=== PATIENT | male | born 1950 | race Caucasian/White ===

== ENCOUNTER 2018-05-15 07:28 | Inpatient (IN) | payer MEDICARE, MEDICAID ==
[~2018-05-15] VITALS: Ht 181.6 cm; Wt 88.5 kg
[2018-05-15 08:27] LABS: BASOPHILS % (AUTO) 0.3 % (0.0-2.0); EOSINOPHILS % (AUTO) 0.5 % (1.0-6.0); HEMATOCRIT 41.8 % (41-53); HEMOGLOBIN 14.4 g/dL (13.5-17.5); LYMPHOCYTES # (AUTO) 1.6 K/uL (1.0-4.8); LYMPHOCYTES % (AUTO) 26.7 % (22.0-44.0); MEAN CORPUSCULAR HGB CONC 34.5 G/dL (31.0-37.0); MEAN CORPUSCULAR VOLUME 102 fL (80-100); MONOCYTES # (AUTO) 0.7 K/uL (0.1-1.0); MONOCYTES % (AUTO) 11.6 % (2.0-9.0); NEUTROPHILS # (AUTO) 3.6 K/uL (1.8-7.7); NEUTROPHILS % (AUTO) 60.9 % (40.0-70.0); PLATELET COUNT (AUTO) 127 K/uL (150-450); RED BLOOD CELL COUNT(AUTO) 4.12 MIL/uL (4.50-5.90); RED CELL DISTRIBUTION WIDTH 12.6 % (11.5-14.5)
[2018-05-15 08:37] LABS: ANION GAP 15 mmol/L (8-16); CALCIUM, TOTAL 9.4 mg/dL (8.8-10.5); CARBON DIOXIDE 21 mmol/L (22-29); CHLORIDE 107 mmol/L (98-107); CREATININE 1.48 mg/dL (0.60-1.30); GLOMERULAR FILTR. RATE CALC 48 mL/min (>60); GLUCOSE,RANDOM 100 mg/dL (70-110); POTASSIUM 3.2 mmol/L (3.5-5.1); SODIUM SERUM 143 mmol/L (136-145); UREA NITROGEN, BLOOD 22 mg/dL (7-18)
[2018-05-15 08:45] LABS: ALANINE AMINOTRANSFERASE 47 U/L (12-78); ALBUMIN 3.4 g/dL (3.4-5.0); ALKALINE PHOSPHATASE 58 U/L (46-116); ASPARTATE AMINOTRANSFERASE 50 U/L (15-37); BILIRUBIN,TOTAL 1.1 mg/dL (0.1-1.0); TOTAL PROTEIN, SERUM 7.5 g/dL (6.4-8.2)
[2018-05-15] MEDS ORDERED: LORazepam 2 MG/ML VIAL IM ONE (14:00)
[2018-05-15] MEDS ORDERED: DiphenhydrAMINE HCL 50 MG/ML VIAL IM ONE (14:00)
[2018-05-15] MEDS ORDERED: HALOPERIDOL LACTATE 5 MG/ML VIAL IM ONE (14:00)
[2018-05-15] MEDS ORDERED: IBUPROFEN 400 MG TABLET PO PRN (14:30)
[2018-05-16] MEDS: HALOPERIDOL 5 MG TABLET PO PRN (06:09)
[2018-05-16] MEDS: LORazepam 2 MG TABLET PO PRN (06:10)
[2018-05-16 09:00] LABS: BASOPHILS % (AUTO) 0.6 % (0.0-2.0); EOSINOPHILS % (AUTO) 0.9 % (1.0-6.0); HEMATOCRIT 40.9 % (41-53); HEMOGLOBIN 14.1 g/dL (13.5-17.5); LYMPHOCYTES # (AUTO) 1.7 K/uL (1.0-4.8); LYMPHOCYTES % (AUTO) 37.9 % (22.0-44.0); MEAN CORPUSCULAR HEMOGLOBIN 34.6 pg (26.0-34.0); MEAN CORPUSCULAR HGB CONC 34.5 G/dL (31.0-37.0); MEAN CORPUSCULAR VOLUME 100 fL (80-100); MONOCYTES # (AUTO) 0.4 K/uL (0.1-1.0); MONOCYTES % (AUTO) 8.5 % (2.0-9.0); NEUTROPHILS # (AUTO) 2.3 K/uL (1.8-7.7); NEUTROPHILS % (AUTO) 52.1 % (40.0-70.0); PLATELET COUNT (AUTO) 116 K/uL (150-450); RED BLOOD CELL COUNT(AUTO) 4.08 MIL/uL (4.50-5.90)
[2018-05-16 09:28] LABS: CALCIUM, TOTAL 8.7 mg/dL (8.8-10.5); CREATININE 1.41 mg/dL (0.60-1.30); POTASSIUM 3.5 mmol/L (3.5-5.1); THYROID STIMULATING HORMONE 2.24 uIU/mL (0.36-3.74); TOTAL PROTEIN, SERUM 7.1 g/dL (6.4-8.2)
[2018-05-16 09:39] LABS: HEMOGLOBIN A1C 5.5 % (4.5-6.2)
[2018-05-16 14:17] LABS: CHOL/HDL RATIO 2.7 (4.2-7.3)
[2018-05-16 17:15] VITALS: BP 149/89
[2018-05-16 20:16] VITALS: BP 141/89
[2018-05-16] MEDS: ZOLPIDEM TARTRATE 10 MG TABLET PO PRN (20:53)
[2018-05-17 00:26] VITALS: BP 144/87
[2018-05-17] MEDS: LORazepam 2 MG TABLET PO PRN ×3 (03:07→17:48)
[2018-05-17 08:00] VITALS: BP 126/86
[2018-05-17] MEDS: HALOPERIDOL 5 MG TABLET PO PRN ×2 (12:55→17:48)
[2018-05-17 16:00] VITALS: BP 136/94
[2018-05-17] MEDS: QUEtiapine FUMARATE 200 MG TABLET PO SCH (16:54)
[2018-05-17] MEDS: GABAPENTIN 300 MG CAPSULE PO SCH (16:54)
[2018-05-17] MEDS ORDERED: HALOPERIDOL LACTATE 5 MG/ML VIAL IM PRN (18:45)
[2018-05-17 20:15] VITALS: BP 143/97
[2018-05-17] MEDS: BENZTROPINE MESYLATE 1 MG TABLET PO SCH (20:15)
[2018-05-17] MEDS: DIVALPROEX SODIUM 500 MG ER TABLET PO SCH (20:15)
[2018-05-17 20:30] VITALS: BP_SYST 138; BP_SYST 143; BP_DIAS 92; BP_DIAS 97
[2018-05-18] MEDS: HALOPERIDOL 5 MG TABLET PO PRN (09:21)
[2018-05-18] MEDS: QUEtiapine FUMARATE 200 MG TABLET PO SCH ×2 (09:21→16:54)
[2018-05-18] MEDS: GABAPENTIN 300 MG CAPSULE PO SCH ×3 (09:21→16:54)
[2018-05-18] MEDS: LORazepam 2 MG TABLET PO PRN (09:21)
[2018-05-18] MEDS: DIVALPROEX SODIUM 500 MG ER TABLET PO SCH ×2 (09:22→21:04)
[2018-05-18 10:57] VITALS: BP 154/98
[2018-05-18 17:02] VITALS: BP 169/104
[2018-05-18] MEDS: BENZTROPINE MESYLATE 1 MG TABLET PO SCH (21:04)
[2018-05-19 08:08] VITALS: BP 149/98
[2018-05-19] MEDS: DIVALPROEX SODIUM 500 MG ER TABLET PO SCH ×2 (08:14→21:35)
[2018-05-19] MEDS: QUEtiapine FUMARATE 200 MG TABLET PO SCH ×2 (08:15→17:40)
[2018-05-19] MEDS: GABAPENTIN 300 MG CAPSULE PO SCH ×3 (08:15→17:40)
[2018-05-19] MEDS: ACETAMINOPHEN 325 MG TABLET PO PRN (11:21)
[2018-05-19 11:24] VITALS: BP 155/110
[2018-05-19 12:24] VITALS: BP 146/88
[2018-05-19 17:36] VITALS: BP 151/94
[2018-05-19] MEDS: BENZTROPINE MESYLATE 1 MG TABLET PO SCH (21:36)
[2018-05-20 06:39] LABS: BASOPHILS % (AUTO) 0.4 % (0.0-2.0); EOSINOPHILS % (AUTO) 2.2 % (1.0-6.0); HEMATOCRIT 40.8 % (41-53); HEMOGLOBIN 14.1 g/dL (13.5-17.5); LYMPHOCYTES % (AUTO) 44.7 % (22.0-44.0); MEAN CORPUSCULAR HGB CONC 34.5 G/dL (31.0-37.0); MEAN CORPUSCULAR VOLUME 102 fL (80-100); MONOCYTES # (AUTO) 0.5 K/uL (0.1-1.0); MONOCYTES % (AUTO) 10.6 % (2.0-9.0); NEUTROPHILS # (AUTO) 1.9 K/uL (1.8-7.7); NEUTROPHILS % (AUTO) 42.1 % (40.0-70.0); PLATELET COUNT (AUTO) 117 K/uL (150-450); RED BLOOD CELL COUNT(AUTO) 4.02 MIL/uL (4.50-5.90); RED CELL DISTRIBUTION WIDTH 12.7 % (11.5-14.5)
[2018-05-20 06:56] LABS: CALCIUM, TOTAL 8.5 mg/dL (8.8-10.5); CREATININE 1.23 mg/dL (0.60-1.30)
[2018-05-20 09:21] VITALS: BP 161/82
[2018-05-20] MEDS: GABAPENTIN 300 MG CAPSULE PO SCH ×3 (09:25→16:30)
[2018-05-20] MEDS: QUEtiapine FUMARATE 200 MG TABLET PO SCH ×2 (09:25→16:30)
[2018-05-20] MEDS: DIVALPROEX SODIUM 500 MG ER TABLET PO SCH ×2 (09:25→20:18)
[2018-05-20] MEDS: AmLODIPine BESYLATE 5 MG TABLET PO SCH (16:30)
[2018-05-20 20:14] VITALS: BP 152/103
[2018-05-20] MEDS: BENZTROPINE MESYLATE 1 MG TABLET PO SCH (20:18)
[2018-05-21] MEDS: ZOLPIDEM TARTRATE 10 MG TABLET PO PRN (01:47)
[2018-05-21] MEDS: ACETAMINOPHEN 325 MG TABLET PO PRN (01:51)
[2018-05-21] MEDS: AmLODIPine BESYLATE 5 MG TABLET PO SCH (08:07)
[2018-05-21] MEDS: DIVALPROEX SODIUM 500 MG ER TABLET PO SCH ×2 (08:07→21:04)
[2018-05-21] MEDS: GABAPENTIN 300 MG CAPSULE PO SCH ×3 (08:07→16:22)
[2018-05-21] MEDS: QUEtiapine FUMARATE 200 MG TABLET PO SCH ×2 (08:08→16:21)
[2018-05-21 08:30] VITALS: BP 127/89
[2018-05-21 17:42] VITALS: BP 155/100
[2018-05-21] MEDS: BENZTROPINE MESYLATE 1 MG TABLET PO SCH (21:05)
[2018-05-22 04:33] VITALS: BP 159/95
[2018-05-22 08:08] VITALS: BP 162/92
[2018-05-22] MEDS: AmLODIPine BESYLATE 5 MG TABLET PO SCH (08:56)
[2018-05-22] MEDS: GABAPENTIN 300 MG CAPSULE PO SCH ×3 (08:56→16:16)
[2018-05-22] MEDS: DIVALPROEX SODIUM 500 MG ER TABLET PO SCH ×2 (08:56→20:03)
[2018-05-22] MEDS: QUEtiapine FUMARATE 200 MG TABLET PO SCH ×2 (08:56→16:16)
[2018-05-22 16:31] VITALS: BP 149/99
[2018-05-22] MEDS: BENZTROPINE MESYLATE 1 MG TABLET PO SCH (20:03)
[2018-05-23 05:09] VITALS: BP 134/101
[2018-05-23] MEDS: DIVALPROEX SODIUM 500 MG ER TABLET PO SCH ×2 (08:14→20:39)
[2018-05-23] MEDS: GABAPENTIN 300 MG CAPSULE PO SCH ×3 (08:14→16:33)
[2018-05-23] MEDS: QUEtiapine FUMARATE 200 MG TABLET PO SCH ×2 (08:14→16:33)
[2018-05-23] MEDS: AmLODIPine BESYLATE 5 MG TABLET PO SCH (08:14)
[2018-05-23 10:39] VITALS: BP 149/92
[2018-05-23 17:48] VITALS: BP 130/95
[2018-05-23] MEDS: BENZTROPINE MESYLATE 1 MG TABLET PO SCH (20:39)
[2018-05-24 04:02] VITALS: BP 144/92
[2018-05-24 10:07] VITALS: BP 144/96
[2018-05-24] MEDS: QUEtiapine FUMARATE 200 MG TABLET PO SCH ×2 (11:42→16:35)
[2018-05-24] MEDS: GABAPENTIN 300 MG CAPSULE PO SCH ×3 (11:43→16:35)
[2018-05-24] MEDS: DIVALPROEX SODIUM 500 MG ER TABLET PO SCH ×2 (11:43→20:11)
[2018-05-24] MEDS: AmLODIPine BESYLATE 5 MG TABLET PO SCH (11:47)
[2018-05-24 18:32] VITALS: BP 133/94
[2018-05-24] MEDS: BENZTROPINE MESYLATE 1 MG TABLET PO SCH (20:11)
[2018-05-25] MEDS: DIVALPROEX SODIUM 500 MG ER TABLET PO SCH (08:16)
[2018-05-25] MEDS: GABAPENTIN 300 MG CAPSULE PO SCH ×3 (08:16→16:30)
[2018-05-25] MEDS: QUEtiapine FUMARATE 200 MG TABLET PO SCH ×2 (08:16→16:30)
[2018-05-25] MEDS: AmLODIPine BESYLATE 5 MG TABLET PO SCH (08:17)
[2018-05-25 08:39] VITALS: BP 139/91
[2018-05-25] MEDS ORDERED: BENZ1TAB10 PO (15:42)
[2018-05-25] MEDS ORDERED: DIVA500T52 PO ×2 (15:43→15:44)
[2018-05-25] MEDS ORDERED: GABA300C PO (15:45)
[2018-05-25] MEDS ORDERED: QUET200T PO (15:45)
[2018-05-25] MEDS ORDERED: AMLO2.5T29 PO (15:48)
== END 2018-05-25 17:15 | DRG 885 ==
LOC: EMS 07:30 → 3EC 05-16 16:50 → EDBD 05-16 16:50 → 3EI 05-20 15:09
PROVIDERS: ADMIT Psychiatry & Neurology Psychiatry; ATTEND Psychiatry & Neurology Psychiatry
DX: F20.0 Paranoid schizophrenia (principal); F19.20 Other psychoactive substance dependence, uncomplicated; N17.9 Acute kidney failure, unspecified; F15.959 Other stimulant use, unspecified with stimulant-induced psychotic disorder, unspecified; R45.87 Impulsiveness; F41.9 Anxiety disorder, unspecified; F32.9 Major depressive disorder, single episode, unspecified; D72.819 Decreased white blood cell count, unspecified; E87.6 Hypokalemia; F99 Mental disorder, not otherwise specified; D69.6 Thrombocytopenia, unspecified; N18.9 Chronic kidney disease, unspecified; I12.9 Hypertensive chronic kidney disease with stage 1 through stage 4 chronic kidney disease, or unspecified chronic kidney disease; Z59.0 Homelessness; Z79.899 Other long term (current) drug therapy
CPT/HCPCS: 83036; 84443; 96372; 99285; G0480; J1200; J1630; J2060

== ENCOUNTER 2018-09-15 14:43 | Inpatient (IN) | payer MEDICARE, MEDICAID ==
[~2018-09-15] VITALS: Ht 180.3 cm; Wt 76.3 kg
[~2018-09-15 14:43] MED LIST: AMLO2.5T29 PO; BENZ1TAB10 PO; DIVA500T52 PO; GABA300C PO; QUET200T PO
[2018-09-15] MEDS ORDERED: CHLO100T24 PO (18:01)
[2018-09-15] MEDS ORDERED: DIPH25 PO (18:02)
[2018-09-15] MEDS ORDERED: HALOPERIDOL 5 MG TABLET PO PRN (19:45)
[2018-09-15] MEDS ORDERED: PNEUMOCOCCAL VACCINE POLYVALENT 0.5 ML VIAL [PPSV23] IM ONE (19:45)
[2018-09-15 20:10] VITALS: BP 163/92
[2018-09-15] MEDS ORDERED: MAGNESIUM HYDROXIDE SUSPENSION 30 ML UDCUP PO PRN (20:15)
[2018-09-15] MEDS ORDERED: MAG HYDROX/AL HYDROX/SIMETH ES 30 ML SUSPENSION UDCUP PO PRN (20:15)
[2018-09-15] MEDS ORDERED: NICOTINE 14 MG/24 HOUR PATCH TD PRN (20:15)
[2018-09-15] MEDS ORDERED: ALBUTEROL SULFATE HFA 90 MCG/PUFF 8 GM INHALER IH PRN (20:15)
[2018-09-15] MEDS ORDERED: DOCUSATE SODIUM 100 MG CAPSULE PO PRN (20:15)
[2018-09-15] MEDS ORDERED: PETROLATUM,WHITE 71 GM JELLY TP PRN (20:15)
[2018-09-15] MEDS ORDERED: ONDANSETRON HCL 4 MG TABLET PO PRN (20:15)
[2018-09-15] MEDS ORDERED: LOPERAMIDE HCL 2 MG CAPSULE PO PRN (20:15)
[2018-09-15] MEDS ORDERED: CloNIDine HCL 0.1 MG TABLET PO PRN (20:15)
[2018-09-15] MEDS ORDERED: GuaiFENesin/D-METHORPHAN [SUGAR-FREE] 200-20MG/10 ML SYRUP UDCUP PO PRN (20:15)
[2018-09-15] MEDS ORDERED: IBUPROFEN 400 MG TABLET PO PRN (20:15)
[2018-09-15] MEDS ORDERED: ACETAMINOPHEN 325 MG TABLET PO PRN (20:15)
[2018-09-15] MEDS ORDERED: CloNIDine HCL 0.1 MG TABLET ONE (20:25)
[2018-09-15] MEDS ORDERED: AmLODIPine BESYLATE 5 MG TABLET ONE (20:25)
[2018-09-15] MEDS ORDERED: PIPERONYL BUTOXIDE/PYRETHRINS 120 ML SHAMPOO TP ONE (20:30)
[2018-09-15] MEDS: AmLODIPine BESYLATE 5 MG TABLET PO SCH (20:32)
[2018-09-15 21:00] VITALS: BP 139/69
[2018-09-16 04:33] VITALS: BP 157/82
[2018-09-16] MEDS: LORazepam 2 MG TABLET PO PRN ×2 (08:09→12:25)
[2018-09-16] MEDS: AmLODIPine BESYLATE 5 MG TABLET PO SCH (08:09)
[2018-09-16 08:37] VITALS: BP 136/79
[2018-09-16 08:38] LABS: BASOPHILS % (AUTO) 0.1 % (0.0-2.0); EOSINOPHILS % (AUTO) 0.6 % (1.0-6.0); HEMATOCRIT 33.7 % (41-53); HEMOGLOBIN 11.7 g/dL (13.5-17.5); LYMPHOCYTES # (AUTO) 1.4 K/uL (1.0-4.8); LYMPHOCYTES % (AUTO) 23.2 % (22.0-44.0); MEAN CORPUSCULAR HEMOGLOBIN 34.4 pg (26.0-34.0); MEAN CORPUSCULAR HGB CONC 34.7 G/dL (31.0-37.0); MEAN CORPUSCULAR VOLUME 99 fL (80-100); MONOCYTES # (AUTO) 0.5 K/uL (0.1-1.0); MONOCYTES % (AUTO) 8.8 % (2.0-9.0); NEUTROPHILS # (AUTO) 3.9 K/uL (1.8-7.7); NEUTROPHILS % (AUTO) 67.3 % (40.0-70.0); PLATELET COUNT (AUTO) 162 K/uL (150-450); RED CELL DISTRIBUTION WIDTH 13.1 % (11.5-14.5)
[2018-09-16 08:51] LABS: HEMOGLOBIN A1C 5.7 % (4.5-6.2)
[2018-09-16 09:04] LABS: ALBUMIN 2.9 g/dL (3.4-5.0); BILIRUBIN,TOTAL 0.6 mg/dL (0.1-1.0); CALCIUM, TOTAL 8.2 mg/dL (8.8-10.5); CHOL/HDL RATIO 2.1 (4.2-7.3); CREATININE 1.42 mg/dL (0.60-1.30); FREE T4 (FREE THYROXINE) 1.01 ng/dL (0.76-1.46); THYROID STIMULATING HORMONE 4.62 uIU/mL (0.36-3.74); TOTAL PROTEIN, SERUM 7.6 g/dL (6.4-8.2)
[2018-09-16] MEDS: GABAPENTIN 300 MG CAPSULE PO SCH (16:53)
[2018-09-16] MEDS: DIVALPROEX SODIUM 500 MG DR TABLET PO SCH ×2 (16:53→20:24)
[2018-09-16] MEDS: QUEtiapine FUMARATE 200 MG TABLET PO SCH (16:54)
[2018-09-16] MEDS: BENZTROPINE MESYLATE 1 MG TABLET PO SCH (20:24)
[2018-09-17 00:05] VITALS: BP 133/83
[2018-09-17] MEDS: ZOLPIDEM TARTRATE 10 MG TABLET PO PRN ×2 (00:15→21:04)
[2018-09-17] MEDS: LORazepam 2 MG TABLET PO PRN ×3 (00:15→21:04)
[2018-09-17 08:01] VITALS: BP 138/93
[2018-09-17] MEDS: GABAPENTIN 300 MG CAPSULE PO SCH ×3 (08:11→18:01)
[2018-09-17] MEDS: QUEtiapine FUMARATE 200 MG TABLET PO SCH ×2 (08:11→18:01)
[2018-09-17] MEDS: DIVALPROEX SODIUM 500 MG DR TABLET PO SCH ×2 (08:11→20:04)
[2018-09-17] MEDS: AmLODIPine BESYLATE 5 MG TABLET PO SCH (08:13)
[2018-09-17 16:40] VITALS: BP 155/78
[2018-09-17] MEDS: COLLOIDAL OATMEAL PACKET TP SCH (18:01)
[2018-09-17] MEDS: BENZTROPINE MESYLATE 1 MG TABLET PO SCH (20:04)
[2018-09-18 06:41] VITALS: BP 144/79
[2018-09-18] MEDS: QUEtiapine FUMARATE 200 MG TABLET PO SCH ×2 (08:00→16:29)
[2018-09-18] MEDS: GABAPENTIN 300 MG CAPSULE PO SCH ×3 (08:00→16:29)
[2018-09-18 08:01] VITALS: BP 156/80
[2018-09-18] MEDS: AmLODIPine BESYLATE 5 MG TABLET PO SCH (08:01)
[2018-09-18] MEDS: COLLOIDAL OATMEAL PACKET TP SCH ×2 (08:03→16:29)
[2018-09-18] MEDS: DIVALPROEX SODIUM 500 MG DR TABLET PO SCH ×2 (09:19→20:57)
[2018-09-18 16:15] VITALS: BP 101/67
[2018-09-18] MEDS: LORazepam 2 MG TABLET PO PRN (16:29)
[2018-09-18] MEDS: BENZTROPINE MESYLATE 1 MG TABLET PO SCH (20:58)
[2018-09-18] MEDS: ZOLPIDEM TARTRATE 10 MG TABLET PO PRN (20:58)
[2018-09-19 04:11] VITALS: BP 132/75
[2018-09-19] MEDS: QUEtiapine FUMARATE 200 MG TABLET PO SCH ×2 (08:13→16:41)
[2018-09-19] MEDS: AmLODIPine BESYLATE 5 MG TABLET PO SCH (08:13)
[2018-09-19] MEDS: DIVALPROEX SODIUM 500 MG DR TABLET PO SCH ×2 (08:13→21:00)
[2018-09-19] MEDS: GABAPENTIN 300 MG CAPSULE PO SCH ×3 (08:14→16:41)
[2018-09-19] MEDS: COLLOIDAL OATMEAL PACKET TP SCH ×2 (08:14→17:00)
[2018-09-19 08:31] VITALS: BP 139/90
[2018-09-19 16:00] VITALS: BP 138/85
[2018-09-19] MEDS: MUPIROCIN CALCIUM 2% 22 GM OINTMENT NASAL SCH (16:41)
[2018-09-19] MEDS: LORazepam 2 MG TABLET PO PRN (16:41)
[2018-09-19] MEDS: BENZTROPINE MESYLATE 1 MG TABLET PO SCH (21:00)
[2018-09-20] MEDS: LORazepam 2 MG TABLET PO PRN (02:17)
[2018-09-20] MEDS: ZOLPIDEM TARTRATE 10 MG TABLET PO PRN (02:17)
[2018-09-20 02:19] VITALS: BP 132/85
[2018-09-20 08:00] VITALS: BP 140/84
[2018-09-20] MEDS: GABAPENTIN 300 MG CAPSULE PO SCH ×3 (08:03→17:00)
[2018-09-20] MEDS: DIVALPROEX SODIUM 500 MG DR TABLET PO SCH (08:03)
[2018-09-20] MEDS: QUEtiapine FUMARATE 200 MG TABLET PO SCH ×2 (08:04→17:00)
[2018-09-20] MEDS: AmLODIPine BESYLATE 5 MG TABLET PO SCH (08:04)
[2018-09-20] MEDS: MUPIROCIN CALCIUM 2% 22 GM OINTMENT NASAL SCH ×2 (08:05→17:00)
[2018-09-20] MEDS: COLLOIDAL OATMEAL PACKET TP SCH ×3 (08:06→17:00)
[2018-09-20 13:30] VITALS: BP 157/84
[2018-09-24] MEDS ORDERED: AMLO-512 PO (10:08)
[2018-09-24] MEDS ORDERED: HYDR25TA84 PO (10:08)
[2018-09-24] MEDS ORDERED: METO5TAB95 PO (10:09)
== END 2018-09-20 18:30 | disposition home or self-care (01) | DRG 885 ==
LOC: B3A 20:07
PROVIDERS: ADMIT Psychiatry & Neurology Child & Adolescent Psychiatry; ATTEND Psychiatry & Neurology Child & Adolescent Psychiatry
DX: F23 Brief psychotic disorder (principal); D64.9 Anemia, unspecified; E03.9 Hypothyroidism, unspecified; F10.10 Alcohol abuse, uncomplicated; I12.9 Hypertensive chronic kidney disease with stage 1 through stage 4 chronic kidney disease, or unspecified chronic kidney disease; N18.9 Chronic kidney disease, unspecified; Z71.41 Alcohol abuse counseling and surveillance of alcoholic; Z79.899 Other long term (current) drug therapy; Z28.21 Immunization not carried out because of patient refusal
CPT/HCPCS: 80074; 83036; 84439; 84443; 87081; 90686; Q0162

== ENCOUNTER 2018-09-24 10:34 | Inpatient (IN) | payer MEDICARE, MEDICAID ==
[~2018-09-24] VITALS: Ht 180.3 cm; Wt 81.0 kg
[~2018-09-24 10:34] MED LIST changes: +AMLO-512 PO; +HYDR25TA84 PO; +METO5TAB95 PO
[2018-09-24 12:39] VITALS: BP 128/68
[2018-09-24] MEDS ORDERED: NICOTINE 14 MG/24 HOUR PATCH TD PRN (14:00)
[2018-09-24] MEDS ORDERED: PETROLATUM,WHITE 71 GM JELLY TP PRN (14:00)
[2018-09-24] MEDS ORDERED: GuaiFENesin/D-METHORPHAN [SUGAR-FREE] 200-20MG/10 ML SYRUP UDCUP PO PRN (14:00)
[2018-09-24] MEDS ORDERED: DOCUSATE SODIUM 100 MG CAPSULE PO PRN (14:00)
[2018-09-24] MEDS ORDERED: LOPERAMIDE HCL 2 MG CAPSULE PO PRN (14:00)
[2018-09-24] MEDS ORDERED: ONDANSETRON HCL 4 MG TABLET PO PRN (14:00)
[2018-09-24] MEDS ORDERED: ACETAMINOPHEN 325 MG TABLET PO PRN (14:00)
[2018-09-24] MEDS ORDERED: MAG HYDROX/AL HYDROX/SIMETH ES 30 ML SUSPENSION UDCUP PO PRN (14:00)
[2018-09-24] MEDS ORDERED: ALBUTEROL SULFATE HFA 90 MCG/PUFF 8 GM INHALER IH PRN (14:00)
[2018-09-24] MEDS ORDERED: CloNIDine HCL 0.1 MG TABLET PO PRN (14:00)
[2018-09-24] MEDS ORDERED: MAGNESIUM HYDROXIDE SUSPENSION 30 ML UDCUP PO PRN (14:00)
[2018-09-24] MEDS ORDERED: PERMETHRIN 1% 60 ML LOTION TP ONE (14:00)
[2018-09-24 14:34] LABS: GLUCOMETER DEV NAME(LOC) BV3N.; GLUCOSE,POINT OF CARE 115 MG/DL (70-110)
[2018-09-24] MEDS: QUEtiapine FUMARATE 200 MG TABLET PO SCH (16:40)
[2018-09-24] MEDS: TERBINAFINE HCL 1% 30 GM CREAM TP SCH (16:40)
[2018-09-24] MEDS: GABAPENTIN 300 MG CAPSULE PO SCH (16:40)
[2018-09-24 17:02] VITALS: BP 152/87
[2018-09-24] MEDS ORDERED: DiphenhydrAMINE HCL 50 MG/ML VIAL IM ONE (17:30)
[2018-09-24] MEDS ORDERED: LORazepam 2 MG/ML VIAL IM ONE (17:30)
[2018-09-24] MEDS ORDERED: HALOPERIDOL LACTATE 5 MG/ML VIAL IM ONE (17:30)
[2018-09-24] MEDS: DIVALPROEX SODIUM 500 MG DR TABLET PO SCH (20:16)
[2018-09-24] MEDS: LORazepam 2 MG TABLET PO PRN (20:16)
[2018-09-25 05:10] VITALS: BP 133/91
[2018-09-25 07:28] LABS: BASOPHILS % (AUTO) 0.8 % (0.0-2.0); EOSINOPHILS % (AUTO) 1.3 % (1.0-6.0); HEMATOCRIT 40.1 % (41-53); HEMOGLOBIN 13.9 g/dL (13.5-17.5); LYMPHOCYTES # (AUTO) 2.2 K/uL (1.0-4.8); MEAN CORPUSCULAR HEMOGLOBIN 34.5 pg (26.0-34.0); MEAN CORPUSCULAR HGB CONC 34.5 G/dL (31.0-37.0); MEAN CORPUSCULAR VOLUME 100 fL (80-100); MONOCYTES # (AUTO) 0.7 K/uL (0.1-1.0); MONOCYTES % (AUTO) 12.3 % (2.0-9.0); NEUTROPHILS # (AUTO) 2.4 K/uL (1.8-7.7); NEUTROPHILS % (AUTO) 44.6 % (40.0-70.0); PLATELET COUNT (AUTO) 148 K/uL (150-450); RED BLOOD CELL COUNT(AUTO) 4.02 MIL/uL (4.50-5.90); RED CELL DISTRIBUTION WIDTH 12.7 % (11.5-14.5)
[2018-09-25] MEDS ORDERED: PNEUMOCOCCAL VACCINE POLYVALENT 0.5 ML VIAL [PPSV23] IM ONE (07:30)
[2018-09-25 07:46] LABS: HEMOGLOBIN A1C 5.7 % (4.5-6.2)
[2018-09-25 08:04] LABS: ALBUMIN 2.7 g/dL (3.4-5.0); BILIRUBIN,TOTAL 0.3 mg/dL (0.1-1.0); CALCIUM, TOTAL 8.6 mg/dL (8.8-10.5); CHOL/HDL RATIO 2.9 (4.2-7.3); CREATININE 1.34 mg/dL (0.60-1.30); POTASSIUM 4.5 mmol/L (3.5-5.1); THYROID STIMULATING HORMONE 3.65 uIU/mL (0.36-3.74); TOTAL PROTEIN, SERUM 7.5 g/dL (6.4-8.2)
[2018-09-25] MEDS: QUEtiapine FUMARATE 200 MG TABLET PO SCH ×2 (08:50→16:23)
[2018-09-25] MEDS: AmLODIPine BESYLATE 10 MG TABLET PO SCH (08:50)
[2018-09-25] MEDS: HydrALAZINE HCL 25 MG TABLET PO SCH (08:50)
[2018-09-25] MEDS: TERBINAFINE HCL 1% 30 GM CREAM TP SCH ×2 (08:51→16:23)
[2018-09-25] MEDS: GABAPENTIN 300 MG CAPSULE PO SCH ×3 (08:51→16:22)
[2018-09-25] MEDS: DIVALPROEX SODIUM 500 MG DR TABLET PO SCH ×2 (08:51→20:30)
[2018-09-25 09:04] VITALS: BP 105/66
[2018-09-25 16:26] VITALS: BP 136/86
[2018-09-25] MEDS ORDERED: LACTULOSE 20 GM/30 ML SOLUTION UDCUP PO PRN (18:45)
[2018-09-26 04:52] VITALS: BP 128/78
[2018-09-26 08:09] VITALS: BP 131/93
[2018-09-26 08:39] LABS: CALCIUM, TOTAL 8.2 mg/dL (8.8-10.5); CREATININE 1.25 mg/dL (0.60-1.30); POTASSIUM 4.2 mmol/L (3.5-5.1)
[2018-09-26] MEDS: DIVALPROEX SODIUM 500 MG DR TABLET PO SCH ×2 (09:21→20:19)
[2018-09-26] MEDS: GABAPENTIN 300 MG CAPSULE PO SCH ×3 (09:22→16:50)
[2018-09-26] MEDS: AmLODIPine BESYLATE 10 MG TABLET PO SCH (09:22)
[2018-09-26] MEDS: HydrALAZINE HCL 25 MG TABLET PO SCH (09:22)
[2018-09-26] MEDS: QUEtiapine FUMARATE 200 MG TABLET PO SCH ×2 (09:22→16:50)
[2018-09-26] MEDS: TERBINAFINE HCL 1% 30 GM CREAM TP SCH ×2 (09:22→16:50)
[2018-09-26] MEDS: HALOPERIDOL 5 MG TABLET PO PRN ×3 (10:11→20:19)
[2018-09-26 16:31] VITALS: BP 112/66
[2018-09-26] MEDS: IBUPROFEN 400 MG TABLET PO PRN (18:17)
[2018-09-27 02:43] VITALS: BP 124/77
[2018-09-27] MEDS: AmLODIPine BESYLATE 10 MG TABLET PO SCH (08:02)
[2018-09-27] MEDS: QUEtiapine FUMARATE 200 MG TABLET PO SCH ×2 (08:02→16:33)
[2018-09-27] MEDS: DIVALPROEX SODIUM 500 MG DR TABLET PO SCH ×2 (08:02→20:19)
[2018-09-27] MEDS: GABAPENTIN 300 MG CAPSULE PO SCH ×3 (08:02→16:33)
[2018-09-27] MEDS: HydrALAZINE HCL 25 MG TABLET PO SCH (08:02)
[2018-09-27] MEDS: TERBINAFINE HCL 1% 30 GM CREAM TP SCH ×2 (08:03→16:33)
[2018-09-27 08:08] VITALS: BP 140/89
[2018-09-27] MEDS: HALOPERIDOL 5 MG TABLET PO PRN (16:33)
[2018-09-27 16:53] VITALS: BP 112/60
[2018-09-28 00:14] VITALS: BP 138/79
[2018-09-28 00:52] VITALS: BP 135/86
[2018-09-28] MEDS: QUEtiapine FUMARATE 200 MG TABLET PO SCH ×2 (08:01→16:26)
[2018-09-28] MEDS: HydrALAZINE HCL 25 MG TABLET PO SCH (08:01)
[2018-09-28] MEDS: DIVALPROEX SODIUM 500 MG DR TABLET PO SCH ×2 (08:02→20:28)
[2018-09-28] MEDS: GABAPENTIN 300 MG CAPSULE PO SCH ×3 (08:02→16:26)
[2018-09-28 08:05] VITALS: BP 153/90
[2018-09-28] MEDS: AmLODIPine BESYLATE 10 MG TABLET PO SCH (08:06)
[2018-09-28] MEDS: TERBINAFINE HCL 1% 30 GM CREAM TP SCH ×2 (08:09→16:26)
[2018-09-28] MEDS ORDERED: PERMETHRIN 1% 60 ML LOTION TP ONE (10:15)
[2018-09-28 16:11] VITALS: BP 124/85
[2018-09-29 02:39] VITALS: BP 137/90
[2018-09-29 08:16] VITALS: BP 140/78
[2018-09-29] MEDS: AmLODIPine BESYLATE 10 MG TABLET PO SCH (09:16)
[2018-09-29] MEDS: GABAPENTIN 300 MG CAPSULE PO SCH ×3 (09:16→16:49)
[2018-09-29] MEDS: DIVALPROEX SODIUM 500 MG DR TABLET PO SCH ×2 (09:16→20:42)
[2018-09-29] MEDS: TERBINAFINE HCL 1% 30 GM CREAM TP SCH ×2 (09:16→16:50)
[2018-09-29] MEDS: QUEtiapine FUMARATE 200 MG TABLET PO SCH ×2 (09:16→16:50)
[2018-09-29] MEDS: HydrALAZINE HCL 25 MG TABLET PO SCH (09:19)
[2018-09-29 16:03] VITALS: BP 125/72
[2018-09-30 02:11] VITALS: BP 128/78
[2018-09-30 08:04] VITALS: BP 142/84
[2018-09-30] MEDS: QUEtiapine FUMARATE 200 MG TABLET PO SCH ×2 (09:02→16:08)
[2018-09-30] MEDS: AmLODIPine BESYLATE 10 MG TABLET PO SCH (09:02)
[2018-09-30] MEDS: HydrALAZINE HCL 25 MG TABLET PO SCH (09:02)
[2018-09-30] MEDS: TERBINAFINE HCL 1% 30 GM CREAM TP SCH ×2 (09:02→16:09)
[2018-09-30] MEDS: DIVALPROEX SODIUM 500 MG DR TABLET PO SCH ×2 (09:02→20:12)
[2018-09-30] MEDS: GABAPENTIN 300 MG CAPSULE PO SCH ×3 (09:02→16:09)
[2018-09-30 16:41] VITALS: BP 155/90
[2018-10-01 01:17] VITALS: BP 145/88
[2018-10-01 08:04] VITALS: BP 131/77
[2018-10-01] MEDS: GABAPENTIN 300 MG CAPSULE PO SCH ×3 (08:08→16:43)
[2018-10-01] MEDS: QUEtiapine FUMARATE 200 MG TABLET PO SCH ×2 (08:09→16:43)
[2018-10-01] MEDS: HydrALAZINE HCL 25 MG TABLET PO SCH (08:09)
[2018-10-01] MEDS: DIVALPROEX SODIUM 500 MG DR TABLET PO SCH ×2 (08:09→21:00)
[2018-10-01] MEDS: AmLODIPine BESYLATE 10 MG TABLET PO SCH (08:09)
[2018-10-01] MEDS: TERBINAFINE HCL 1% 30 GM CREAM TP SCH ×2 (08:10→16:42)
[2018-10-01] MEDS: LORazepam 2 MG TABLET PO PRN (08:12)
[2018-10-01] MEDS: HALOPERIDOL 5 MG TABLET PO PRN (08:12)
[2018-10-01 16:00] VITALS: BP 136/80
[2018-10-01] MEDS: DICLOFENAC SODIUM 1% 100 GM GEL [4GM] TP SCH (16:42)
[2018-10-01] MEDS: IBUPROFEN 400 MG TABLET PO PRN (19:08)
[2018-10-01] MEDS: CEPHALEXIN MONOHYDRATE 500 MG CAPSULE PO SCH (21:00)
[2018-10-02] VITALS (10 sets, daily range): BP systolic 102–147; BP diastolic 64–93
[2018-10-02] MEDS: IBUPROFEN 400 MG TABLET PO PRN (03:08)
[2018-10-02] MEDS: CEPHALEXIN MONOHYDRATE 500 MG CAPSULE PO SCH ×4 (08:09→20:20)
[2018-10-02] MEDS: GABAPENTIN 300 MG CAPSULE PO SCH ×3 (08:09→16:03)
[2018-10-02] MEDS: TERBINAFINE HCL 1% 30 GM CREAM TP SCH ×2 (08:09→16:06)
[2018-10-02] MEDS: AmLODIPine BESYLATE 10 MG TABLET PO SCH (08:09)
[2018-10-02] MEDS: QUEtiapine FUMARATE 200 MG TABLET PO SCH ×2 (08:09→16:03)
[2018-10-02] MEDS: SULFAMETHOX/TRIMETH DS 800-160 MG/TABLET PO SCH ×2 (08:09→16:03)
[2018-10-02] MEDS: DIVALPROEX SODIUM 500 MG DR TABLET PO SCH ×2 (08:09→20:20)
[2018-10-02] MEDS: DICLOFENAC SODIUM 1% 100 GM GEL [4GM] TP SCH ×3 (08:09→16:06)
[2018-10-02] MEDS: HydrALAZINE HCL 25 MG TABLET PO SCH (08:09)
[2018-10-02] MEDS: LORazepam 2 MG TABLET PO PRN ×2 (08:10→16:04)
[2018-10-02 08:55] LABS: BASOPHILS % (AUTO) 0.6 % (0.0-2.0); EOSINOPHILS % (AUTO) 1.4 % (1.0-6.0); HEMATOCRIT 33.3 % (41-53); HEMOGLOBIN 11.1 g/dL (13.5-17.5); LYMPHOCYTES # (AUTO) 1.5 K/uL (1.0-4.8); LYMPHOCYTES % (AUTO) 32.1 % (22.0-44.0); MEAN CORPUSCULAR HGB CONC 33.5 G/dL (31.0-37.0); MEAN CORPUSCULAR VOLUME 99 fL (80-100); MONOCYTES # (AUTO) 0.6 K/uL (0.1-1.0); MONOCYTES % (AUTO) 12.7 % (2.0-9.0); NEUTROPHILS # (AUTO) 2.5 K/uL (1.8-7.7); NEUTROPHILS % (AUTO) 53.2 % (40.0-70.0); PLATELET COUNT (AUTO) 114 K/uL (150-450); RED BLOOD CELL COUNT(AUTO) 3.38 MIL/uL (4.50-5.90); RED CELL DISTRIBUTION WIDTH 13.1 % (11.5-14.5)
[2018-10-02] MEDS ORDERED: PERMETHRIN 5% 60 GM CREAM TP ONE (21:45)
[2018-10-03] MEDS: HALOPERIDOL 5 MG TABLET PO PRN (00:41)
[2018-10-03] MEDS: ZOLPIDEM TARTRATE 10 MG TABLET PO PRN (00:41)
[2018-10-03] MEDS: SULFAMETHOX/TRIMETH DS 800-160 MG/TABLET PO SCH ×2 (08:23→16:10)
[2018-10-03] MEDS: GABAPENTIN 300 MG CAPSULE PO SCH ×3 (08:23→16:10)
[2018-10-03] MEDS: CEPHALEXIN MONOHYDRATE 500 MG CAPSULE PO SCH ×4 (08:23→20:28)
[2018-10-03] MEDS: DIVALPROEX SODIUM 500 MG DR TABLET PO SCH ×2 (08:23→20:28)
[2018-10-03] MEDS: AmLODIPine BESYLATE 10 MG TABLET PO SCH (08:24)
[2018-10-03] MEDS: QUEtiapine FUMARATE 200 MG TABLET PO SCH ×2 (08:24→16:10)
[2018-10-03] MEDS: TERBINAFINE HCL 1% 30 GM CREAM TP SCH ×2 (09:00→16:11)
[2018-10-03] MEDS: DICLOFENAC SODIUM 1% 100 GM GEL [4GM] TP SCH ×3 (09:00→16:10)
[2018-10-03 09:12] VITALS: BP 152/89
[2018-10-03] MEDS: HydrALAZINE HCL 25 MG TABLET PO SCH (12:46)
[2018-10-03 17:01] VITALS: BP 121/76
[2018-10-04] MEDS: ZOLPIDEM TARTRATE 10 MG TABLET PO PRN (00:54)
[2018-10-04] MEDS: LORazepam 2 MG TABLET PO PRN ×2 (00:54→07:56)
[2018-10-04] MEDS: HydrALAZINE HCL 25 MG TABLET PO SCH (07:54)
[2018-10-04] MEDS: HALOPERIDOL 5 MG TABLET PO PRN (07:57)
[2018-10-04] MEDS: AmLODIPine BESYLATE 10 MG TABLET PO SCH (07:57)
[2018-10-04] MEDS: QUEtiapine FUMARATE 200 MG TABLET PO SCH ×2 (07:57→17:16)
[2018-10-04] MEDS: DIVALPROEX SODIUM 500 MG DR TABLET PO SCH ×2 (07:57→20:01)
[2018-10-04] MEDS: GABAPENTIN 300 MG CAPSULE PO SCH ×3 (07:57→17:15)
[2018-10-04] MEDS: TERBINAFINE HCL 1% 30 GM CREAM TP SCH ×2 (07:58→17:17)
[2018-10-04] MEDS: SULFAMETHOX/TRIMETH DS 800-160 MG/TABLET PO SCH ×2 (07:58→17:15)
[2018-10-04] MEDS: CEPHALEXIN MONOHYDRATE 500 MG CAPSULE PO SCH ×4 (07:58→20:01)
[2018-10-04] MEDS: DICLOFENAC SODIUM 1% 100 GM GEL [4GM] TP SCH ×3 (07:58→17:17)
[2018-10-04 08:00] VITALS: BP 147/95
[2018-10-04 09:30] VITALS: BP 120/63
[2018-10-04 10:02] VITALS: BP 120/63
[2018-10-04 16:38] VITALS: BP 127/83
[2018-10-05 08:00] VITALS: BP 153/95
[2018-10-05] MEDS: GABAPENTIN 300 MG CAPSULE PO SCH ×3 (08:09→16:55)
[2018-10-05] MEDS: SULFAMETHOX/TRIMETH DS 800-160 MG/TABLET PO SCH ×2 (08:09→16:55)
[2018-10-05] MEDS: AmLODIPine BESYLATE 10 MG TABLET PO SCH (08:09)
[2018-10-05] MEDS: QUEtiapine FUMARATE 200 MG TABLET PO SCH ×2 (08:09→16:56)
[2018-10-05] MEDS: CEPHALEXIN MONOHYDRATE 500 MG CAPSULE PO SCH ×4 (08:09→20:18)
[2018-10-05] MEDS: DIVALPROEX SODIUM 500 MG DR TABLET PO SCH ×2 (08:09→20:17)
[2018-10-05] MEDS: TERBINAFINE HCL 1% 30 GM CREAM TP SCH ×2 (08:10→17:00)
[2018-10-05] MEDS: DICLOFENAC SODIUM 1% 100 GM GEL [4GM] TP SCH ×3 (08:10→17:00)
[2018-10-05] MEDS: HydrALAZINE HCL 25 MG TABLET PO SCH (08:10)
[2018-10-05] MEDS: LORazepam 2 MG TABLET PO PRN (17:00)
[2018-10-05 19:00] VITALS: BP 143/85
[2018-10-06] MEDS: HydrALAZINE HCL 25 MG TABLET PO SCH (07:58)
[2018-10-06] MEDS: DIVALPROEX SODIUM 500 MG DR TABLET PO SCH ×2 (08:00→22:00)
[2018-10-06] MEDS: QUEtiapine FUMARATE 200 MG TABLET PO SCH ×2 (08:00→17:31)
[2018-10-06] MEDS: AmLODIPine BESYLATE 10 MG TABLET PO SCH (08:00)
[2018-10-06] MEDS: LORazepam 2 MG TABLET PO PRN (08:00)
[2018-10-06] MEDS: SULFAMETHOX/TRIMETH DS 800-160 MG/TABLET PO SCH ×2 (08:01→17:30)
[2018-10-06] MEDS: DICLOFENAC SODIUM 1% 100 GM GEL [4GM] TP SCH ×3 (08:01→17:32)
[2018-10-06] MEDS: TERBINAFINE HCL 1% 30 GM CREAM TP SCH ×2 (08:01→17:38)
[2018-10-06] MEDS: CEPHALEXIN MONOHYDRATE 500 MG CAPSULE PO SCH ×4 (08:01→22:00)
[2018-10-06] MEDS: GABAPENTIN 300 MG CAPSULE PO SCH ×3 (08:01→17:30)
[2018-10-06 08:29] VITALS: BP 156/83
[2018-10-06 16:36] VITALS: BP 146/82
[2018-10-07] MEDS: LORazepam 2 MG TABLET PO PRN ×2 (00:03→23:25)
[2018-10-07] MEDS: ZOLPIDEM TARTRATE 10 MG TABLET PO PRN ×2 (00:03→20:15)
[2018-10-07] MEDS: HALOPERIDOL 5 MG TABLET PO PRN ×2 (01:24→08:01)
[2018-10-07] MEDS: DIVALPROEX SODIUM 500 MG DR TABLET PO SCH ×2 (08:01→20:03)
[2018-10-07] MEDS: GABAPENTIN 300 MG CAPSULE PO SCH ×3 (08:01→16:29)
[2018-10-07] MEDS: CEPHALEXIN MONOHYDRATE 500 MG CAPSULE PO SCH ×4 (08:01→20:03)
[2018-10-07] MEDS: QUEtiapine FUMARATE 200 MG TABLET PO SCH ×2 (08:01→16:29)
[2018-10-07] MEDS: SULFAMETHOX/TRIMETH DS 800-160 MG/TABLET PO SCH ×2 (08:01→16:28)
[2018-10-07] MEDS: AmLODIPine BESYLATE 10 MG TABLET PO SCH (08:01)
[2018-10-07] MEDS: HydrALAZINE HCL 25 MG TABLET PO SCH ×2 (08:02→20:20)
[2018-10-07] MEDS: TERBINAFINE HCL 1% 30 GM CREAM TP SCH ×2 (08:04→16:29)
[2018-10-07] MEDS: DICLOFENAC SODIUM 1% 100 GM GEL [4GM] TP SCH ×3 (08:04→16:29)
[2018-10-07 16:54] VITALS: BP 136/74
[2018-10-08] MEDS: AmLODIPine BESYLATE 10 MG TABLET PO SCH (07:56)
[2018-10-08] MEDS: QUEtiapine FUMARATE 200 MG TABLET PO SCH ×2 (07:56→16:17)
[2018-10-08] MEDS: DIVALPROEX SODIUM 500 MG DR TABLET PO SCH ×2 (07:56→20:09)
[2018-10-08] MEDS: CEPHALEXIN MONOHYDRATE 500 MG CAPSULE PO SCH ×4 (07:56→20:09)
[2018-10-08] MEDS: GABAPENTIN 300 MG CAPSULE PO SCH ×3 (07:56→16:17)
[2018-10-08] MEDS: SULFAMETHOX/TRIMETH DS 800-160 MG/TABLET PO SCH ×2 (07:56→16:17)
[2018-10-08] MEDS: DICLOFENAC SODIUM 1% 100 GM GEL [4GM] TP SCH ×3 (07:57→16:18)
[2018-10-08] MEDS: TERBINAFINE HCL 1% 30 GM CREAM TP SCH ×2 (07:59→16:17)
[2018-10-08 08:00] VITALS: BP 152/80
[2018-10-08 16:14] VITALS: BP 148/82
[2018-10-08] MEDS: LORazepam 2 MG TABLET PO PRN (21:04)
[2018-10-08] MEDS: ZOLPIDEM TARTRATE 10 MG TABLET PO PRN (21:04)
[2018-10-09 04:57] VITALS: BP 141/81
[2018-10-09 08:28] VITALS: BP 151/96
[2018-10-09] MEDS: DICLOFENAC SODIUM 1% 100 GM GEL [4GM] TP SCH ×3 (09:00→16:24)
[2018-10-09] MEDS: TERBINAFINE HCL 1% 30 GM CREAM TP SCH ×2 (09:00→16:24)
[2018-10-09] MEDS: QUEtiapine FUMARATE 200 MG TABLET PO SCH (09:00)
[2018-10-09] MEDS: AmLODIPine BESYLATE 10 MG TABLET PO SCH (09:06)
[2018-10-09] MEDS: DIVALPROEX SODIUM 500 MG DR TABLET PO SCH ×2 (09:06→20:34)
[2018-10-09] MEDS: GABAPENTIN 300 MG CAPSULE PO SCH ×3 (09:06→16:24)
[2018-10-09] MEDS: SULFAMETHOX/TRIMETH DS 800-160 MG/TABLET PO SCH ×2 (09:06→16:24)
[2018-10-09] MEDS: CEPHALEXIN MONOHYDRATE 500 MG CAPSULE PO SCH ×4 (09:06→20:35)
[2018-10-09] MEDS: HydrALAZINE HCL 25 MG TABLET PO SCH (09:07)
[2018-10-09 16:04] VITALS: BP 138/82
[2018-10-09] MEDS ORDERED: QUEtiapine FUMARATE 200 MG TABLET PO SCH (21:00)
[2018-10-10] MEDS: DIVALPROEX SODIUM 500 MG DR TABLET PO SCH (08:14)
[2018-10-10] MEDS: AmLODIPine BESYLATE 10 MG TABLET PO SCH (08:14)
[2018-10-10] MEDS: GABAPENTIN 300 MG CAPSULE PO SCH ×2 (08:14→12:14)
[2018-10-10] MEDS: CEPHALEXIN MONOHYDRATE 500 MG CAPSULE PO SCH ×2 (08:14→12:14)
[2018-10-10] MEDS: SULFAMETHOX/TRIMETH DS 800-160 MG/TABLET PO SCH (08:14)
[2018-10-10] MEDS: TERBINAFINE HCL 1% 30 GM CREAM TP SCH (08:15)
[2018-10-10] MEDS: HydrALAZINE HCL 25 MG TABLET PO SCH (08:15)
[2018-10-10] MEDS: DICLOFENAC SODIUM 1% 100 GM GEL [4GM] TP SCH ×2 (08:15→14:46)
[2018-10-10 08:39] VITALS: BP 156/97
[2018-10-10] MEDS ORDERED: CEPH500 PO (09:19)
[2018-10-10] MEDS ORDERED: SULF1TAB42 PO (09:19)
[2018-10-10] MEDS ORDERED: TERB30CR TP (09:19)
[2018-10-10] MEDS ORDERED: DICL2100G TP (11:19)
== END 2018-10-10 15:00 | disposition home or self-care (01) | DRG 885 ==
LOC: B3A 12:31 → 3EC 10-02 23:54
PROVIDERS: ATTEND Psychiatry & Neurology Child & Adolescent Psychiatry
DX: F20.0 Paranoid schizophrenia (principal); L03.116 Cellulitis of left lower limb; B18.2 Chronic viral hepatitis C; D64.9 Anemia, unspecified; D69.6 Thrombocytopenia, unspecified; E03.9 Hypothyroidism, unspecified; F10.10 Alcohol abuse, uncomplicated; I12.9 Hypertensive chronic kidney disease with stage 1 through stage 4 chronic kidney disease, or unspecified chronic kidney disease; K59.00 Constipation, unspecified; M12.50 Traumatic arthropathy, unspecified site; N18.9 Chronic kidney disease, unspecified; F19.10 Other psychoactive substance abuse, uncomplicated; S93.402A Sprain of unspecified ligament of left ankle, initial encounter; Z71.41 Alcohol abuse counseling and surveillance of alcoholic; Z71.51 Drug abuse counseling and surveillance of drug abuser; Z59.0 Homelessness; X58.XXXA Exposure to other specified factors, initial encounter; Y93.89 Activity, other specified; Y92.89 Other specified places as the place of occurrence of the external cause; Y99.8 Other external cause status
CPT/HCPCS: 73700; 83036; 84443; 87081; 90686; 90732; 93970